=== PATIENT | male | born 1960 | race Caucasian/White ===

== ENCOUNTER 2017-09-23 19:45 | Emergency (ER) | payer BC ==
[2017-09-23] MEDS ORDERED: oxyCODONE/Acetamin 5/325 MG* TAB PO ONE (21:46)
[2017-09-23] MEDS ORDERED: Orphenadrine Citrate IV* 30 MG/ML 2 ML VIAL IM ONE (21:48)
[2017-09-23 22:08] LABS: ABS Basophils 0.1 10^3/ul (0-0.2); ABS Eosinophils 0.3 10^3/ul (0-0.6); ABS Lymphocytes 2.1 10^3/ul (1.0-4.8); ABS Monocytes 0.7 10^3/ul (0-0.8); ABS Neutrophils 3.2 10^3/ul (1.5-7.7); ABS Nucleated RBC 0 10^3/ul; Eosinophil % 4.7 % (0-6); Hematocrit 43 % (42-52); Hemoglobin 14.8 g/dl (14.0-18.0); Lymphocyte % 33.6 % (25-47); Mean Corpuscular HGB Conc 35 g/dl (31-36); Mean Corpuscular Hemoglobin 30 pg (27-31); Mean Corpuscular Volume 86 fL (80-94); Mean Platelet Volume 9 um3 (7.4-10.4); Nucleated Red Blood Cells % 0.2; Platelet Count 245 10^3/ul (150-450); Red Blood Count 5.03 10^6/ul (4.0-5.4); Red Cell Distribution Width 13 % (10.5-15); White Blood Count 6.4 10^3/ul (3.5-10.8)
[2017-09-23 22:16] LABS: INR 0.91 (0.77-1.02)
[2017-09-23 22:20] LABS: EGFR Non-African American 71.5 (>60)
--- NOTE | 2017-09-23 23:52 | ED ---
Venancio Raphael Angela, scribed for Favian Elliott on 09/23/17 at 2144 . Upper Extremity Pain - HPI Summary HPI Summary: This pt is a 57 y/o male presenting to [facility] c/o right shoulder pain radiating down to his right upper arm pain since 09/03/17. Pt denies any injury or trauma. He states he can only think of pulling on a snowblower to start it a few weeks ago prior to onset of pain. He reports his right upper arm also feels numb. Pt describes his pain as a stabbing pain on his right shoulder blade. He rates his pain 8 to 10 out of 10 in severity. Denies rash, fever. Pt states he went to a chiropractor and was diagnosed with a tightened muscle. Pt also went to Urgent Care and was given Flexeril as a muscle relaxant. He followed up with orthopedics and had XR done, which resulted negative. Pt was told to continue physical therapy. NKDA. - History of Current Complaint Chief Complaint: EDGeneral Stated Complaint: NUMBNESS RT SIDE Time Seen by Provider: 09/23/17 21:23 Hx Obtained From: Patient Mechanism Of Injury: Other - none per pt Onset/Duration: Started Weeks Ago, Atraumatic, Still Present Timing: Lasting Weeks Severity Currently: Severe Pain Location: Arm - right, Other: - right shoulder blade Character: Sharp Aggravating Factor(s): Nothing Alleviating Factor(s): Nothing Associated Signs & Symptoms: Positive: Numbness/Tingling - numbness on right shoulder blade and upper arm - Allergies/Home Medications Allergies/Adverse Reactions: Allergies Allergy/AdvReac Type Severity Reaction Status Date / Time No Known Allergies Allergy Verified 09/23/17 21:24 PMH/Surg Hx/FS Hx/Imm Hx Endocrine/Hematology History: Denies: Hx Anticoagulant Therapy, Hx Diabetes Cardiovascular History: Denies: Hx Congestive Heart Failure, Hx Hypertension History: Denies: Hx Renal Disease - Surgical History Surgery Procedure, Year, and Place: rt ankle - Immunization History Date of Tetanus Vaccine: utd Date of Influenza Vaccine: none Infectious Disease History: No Infectious Disease History: Denies: Traveled Outside the [place] in Last 30 Days - Family History Family History: No FHx of renal disease. - Social History Alcohol Use: Rare Substance Use Type: Reports: None Smoking Status (MU): Never Smoked Tobacco Review of Systems Negative: Fever, Chills Musculoskeletal: Other - right shoulder blade pain, right right upper arm pain Negative: Rash Positive: Numbness - right shoulder blade All Other Systems Reviewed And Are Negative: Yes Physical Exam - Summary Physical Exam Summary: Appearance: Well appearing, no pain distress Skin: warm, dry, reflects adequate perfusion Head/face: normal Eyes: EOMI, CHRISTIAN ENT: normal Neck: supple, nontender Respiratory: CTA, breath sounds present Cardiovascular: RRR, pulses symmetrical Abdomen: nontender, soft Bowel: present Musculoskeletal: tenderness over the interscapular region on the right side. Tenderness of the right arm on the medial aspect. No neurovascular deficits on right arm. Neuro: normal, sensory motor intact, A&Ox3 Triage Information Reviewed: Yes Vital Signs On Initial Exam: Initial Vitals Temp Pulse Resp BP Pulse Ox 97.7 F 75 18 153/91 98 09/23/17 19:54 09/23/17 19:54 09/23/17 19:54 09/23/17 19:54 09/23/17 19:54 Vital Signs Reviewed: Yes - Frederic Coma Scale Best Eye Response: 4 - Spontaneous Best Motor Response: 6 - Obeys Commands Best Verbal Response: 5 - Oriented Coma Scale Total: 15 Diagnostics - Vital Signs Vital Signs Temp Pulse Resp BP Pulse Ox 09/23/17 19:54 97.7 F 75 18 153/91 98 - Laboratory Lab Results: Lab Results 09/23/17 09/23/17 09/23/17 Range/Units 21:50 21:50 21:50 WBC 6.4 (3.5-10.8) 10^3/ul RBC 5.03 (4.0-5.4) 10^6/ul Hgb 14.8 (14.0-18.0) g/dl Hct 43 (42-52) % MCV 86 (80-94) fL MCH 30 (27-31) pg MCHC 35 (31-36) g/dl RDW 13 (10.5-15) % Plt Count 245 (150-450) 10^3/ul MPV 9 (7.4-10.4) um3 Neut % (Auto) 50.4 (38-83) % Lymph % (Auto) 33.6 (25-47) % [place] % (Auto) 10.4 H (0-7) % Eos % (Auto) 4.7 (0-6) % Baso % (Auto) 0.9 (0-2) % Absolute Neuts (auto) 3.2 (1.5-7.7) 10^3/ul Absolute Lymphs (auto) 2.1 (1.0-4.8) 10^3/ul Absolute Monos (auto) 0.7 (0-0.8) 10^3/ul Absolute Eos (auto) 0.3 (0-0.6) 10^3/ul Absolute Basos (auto) 0.1 (0-0.2) 10^3/ul Absolute Nucleated RBC 0 10^3/ul Nucleated RBC % 0.2 INR (Anticoag Therapy) 0.91 (0.77-1.02) APTT 33.6 (26.0-36.3) seconds Sodium 136 (133-145) mmol/L Potassium 3.8 (3.5-5.0) mmol/L Chloride 104 (101-111) mmol/L Carbon Dioxide 25 (22-32) mmol/L Anion Gap 7 (2-11) mmol/L BUN 18 (6-24) mg/dL Creatinine 1.07 (0.67-1.17) mg/dL Est GFR ( Amer) 91.9 (>60) Est GFR (Non-Af Amer) 71.5 (>60) BUN/Creatinine Ratio 16.8 (8-20) Glucose 94 (70-100) mg/dL Calcium 9.2 (8.6-10.3) mg/dL Total Bilirubin 0.50 (0.2-1.0) mg/dL AST 18 (13-39) U/L ALT 26 (7-52) U/L Alkaline Phosphatase 38 (34-104) U/L Troponin I 0.00 (<0.04) ng/mL Total Protein 6.8 (6.4-8.9) g/dL Albumin 4.1 (3.2-5.2) g/dL Globulin 2.7 (2-4) g/dL Albumin/Globulin Ratio 1.5 (1-3) Lipase 19 (11.0-82.0) U/L Result Diagrams: 09/23/17 21:50 09/23/17 21:50 Lab Statement: Any lab studies that have been ordered have been reviewed, and results considered in the medical decision making process. - Radiology Chest XR Xray Interpretation: No Acute Changes - chest XR is negative Radiology Interpretation Completed By: ED Physician - CT Head CT CT Interpretation: No Acute Changes - IMPRESSION There is no CT evidence of acute cortical territorial infarction, bleed, mass lesion, mass effect, hydrocephalus, or abnormal extraaxial collection. No acute sinusitis or mastoiditis is identified. Mild left ethmoid chronic sinus disease. No acute skull fracture or calvarial lesion is noted. Dr. Elliott has reviewed this radiology report. CT Interpretation Completed By: Radiologist Neck CT CT Interpretation: Positive (See Comments) - IMPRESSION: Straightening of the curvature. No acute fracture, subluxation or abnormal prevertebral soft tissue swelling noted. Facet joints intact and normally aligned. Spinous processes intact. Underlying degenerative disc disease at C5-6, C6-7, and C7-T1 with disc space narrowing and disc bulging combination. Bilateral C5-6 neuroforaminal narrowing present. There is a 1.6 cm low-density lesion in the right thyroid lobe. Consider a follow-up thyroid ultrasounds for further evaluation. No neck soft tissue hemorrhage or edema seen. No pneumothorax in the lung apices. Dr. Elliott has reviewed this radiology report. CT Interpretation Completed By: Radiologist - EKG 22:43 Cardiac Rate: NL EKG Rhythm: Sinus Rhythm - at 64 bpm EKG Interpretation: No acute changes. Re-Evaluation - Re-Evaluation First Eval Re-Evaluation Time: 23:15 Comment: I reviewed the CT and lab results with the pt. He reports he feels better. Course/Dx - Course Course Of Treatment: Pt is a 57 y/o male who presents with atraumatic right shoulder pain radiating down to his right upper arm pain since 09/03/17. He additionally notes associated numbness with pain. Bloodwork, chest XR, head CT, and cervical spine CT were obtained. All images are negative. Pt reports feeling better after medications. Pt will be discharged to home. He will be given a prescription for Robaxin and Percocet. - Diagnoses Differential Diagnosis/HQI/PQRI: Positive: Arthritis, Strain, Sprain, Other - radiculitis Provider Diagnoses: Cervical radiculopathy Discharge - Discharge Plan Condition: Stable Disposition: HOME Prescriptions: Methocarbamol TAB* [Robaxin 500 MG TAB*] 750 mg PO TID PRN #21 tab MDD 3 PRN Reason: Pain Oxycodone HCl/Acetaminophen [Percocet] 1 tab PO TID #21 tab MDD 3 Patient Education Materials: Cervical Radiculopathy (ED) Forms: *Work Release Referrals: Suri Izquierdo MD [Primary Care Provider] - 3 Days Additional Instructions: Please follow up with your primary care provider in 3 days. RETURN TO THE ED FOR ANY WORSENING SYMPTOMS. The documentation as recorded by the Venancio wood Angela accurately reflects the service I personally performed and the decisions made by Earl barrientos Emmanuel.
[2017-09-24 00:19] VITALS: BP 149/83
--- NOTE | 2017-09-24 07:32 | RAD ---
INDICATION: Right arm numbness. COMPARISON: There are no prior studies available for comparison. TECHNIQUE: Contiguous axial sections of the brain were obtained from the skull base to the vertex without contrast. FINDINGS: The ventricles, cisterns and sulci are within normal limits. No significant focal abnormality or mass effect is seen. There is no evidence for hemorrhage. There is mildly mucosal thickening within the ethmoid air cells on the left side. The visualized portion of the paranasal sinuses and mastoid air cells otherwise appear clear. IMPRESSION: NO EVIDENCE FOR GROSS ACUTE INFARCT, MASS EFFECT OR HEMORRHAGE.
--- NOTE | 2017-09-24 07:39 | RAD ---
INDICATION: Numbness in the right arm. COMPARISON: There are no prior studies available for comparison. TECHNIQUE: Contiguous axial sections were obtained from the skull base through the T1 vertebra. Images were reconstructed in the sagittal and coronal planes. FINDINGS: There is straightening of the cervical spine with loss of the normal cervical lordosis. No prevertebral soft tissue swelling or fracture is seen. At the C3-C4 level there is a mild broad-based disc bulge. No significant spinal canal narrowing is present. There is mild bilateral neural foraminal narrowing. At the C4-C5 level there is mild uncinate process spurring associated with a mild broad-based disc bulge. No significant spinal canal narrowing is present. There is mild bilateral neural foraminal narrowing. At the C5-C6 level there is a mild broad-based disc bulge associated with posterior uncinate process spurring. There appears be mild spinal canal narrowing and mild to moderate bilateral neural foraminal narrowing. At the C6-C7 level there is mild posterior uncinate process spurring. No significant spinal canal narrowing is noted. There is mild bilateral neural foraminal narrowing. The lung apices appear clear. There is a 1.4 x 1.0 cm nodule in the right thyroid lobe. IMPRESSION: 1. STRAIGHTENING OF THE CERVICAL SPINE, NO EVIDENCE FOR FRACTURE OR SUBLUXATION. 2. MILD TO MODERATE CERVICAL SPONDYLOSIS. 3. 1.4 CM THYROID NODULE. RECOMMEND A FOLLOW-UP THYROID ULTRASOUND FOR FURTHER EVALUATION.
--- NOTE | 2017-09-24 07:49 | RAD ---
INDICATION: Upper back pain COMPARISON: Most recent comparison chest x-rays dated August 16, 2014 at which time the patient had right upper lobe pneumonia TECHNIQUE: PA and lateral views of the chest were obtained. FINDINGS: The heart and mediastinum are normal in size and contour. The lungs are grossly clear. There is no evidence of large pleural effusion. Visualized bones are normal for the patient's age. There is no radiographic evidence of free air beneath the diaphragm IMPRESSION: No radiographic evidence of acute cardiopulmonary disease.
== END 2017-09-24 00:17 | disposition home or self-care (01) ==
LOC: ED 19:45
DX: M47.22 Other spondylosis with radiculopathy, cervical region (principal); E04.1 Nontoxic single thyroid nodule; R20.0 Anesthesia of skin
CPT/HCPCS: 36415; 70450; 71046; 72125; 80053; 83690; 84484; 85025; 85610; 85730; 93005; 96372; 99282; A9270-GY; J2360

== ENCOUNTER 2017-10-06 06:42 | Emergency (ER) | payer BC ==
[2017-10-06] MEDS ORDERED: Metoprolol Tartrate TAB* 25 MG PO ONE (07:21)
[2017-10-06] MEDS ORDERED: Nitroglycerin TAB 0.4 MG* 0.4 MG TAB SL ONE (07:21)
[2017-10-06] MEDS ORDERED: Aspirin EC TAB* 325 MG PO ONE (07:21)
[2017-10-06 07:49] LABS: ABS Basophils 0 10^3/ul (0-0.2); ABS Eosinophils 0.2 10^3/ul (0-0.6); ABS Lymphocytes 1.5 10^3/ul (1.0-4.8); ABS Monocytes 0.6 10^3/ul (0-0.8); ABS Neutrophils 3.9 10^3/ul (1.5-7.7); ABS Nucleated RBC 0 10^3/ul; Eosinophil % 3.2 % (0-6); Hematocrit 45 % (42-52); Hemoglobin 15.5 g/dl (14.0-18.0); Lymphocyte % 23.9 % (25-47); Mean Corpuscular HGB Conc 35 g/dl (31-36); Mean Corpuscular Hemoglobin 30 pg (27-31); Mean Corpuscular Volume 86 fL (80-94); Mean Platelet Volume 9 um3 (7.4-10.4); Nucleated Red Blood Cells % 0; Platelet Count 264 10^3/ul (150-450); Red Blood Count 5.21 10^6/ul (4.0-5.4); Red Cell Distribution Width 13 % (10.5-15); White Blood Count 6.2 10^3/ul (3.5-10.8)
--- NOTE | 2017-10-06 07:56 | RAD ---
HISTORY: Chest pain COMPARISONS: September 23, 2017 VIEWS: 1: frontal portable view of the chest at 7:25 AM FINDINGS: LINES AND TUBES: None. CARDIOMEDIASTINAL SILHOUETTE: The cardiomediastinal silhouette is normal for portable technique. PLEURA: The costophrenic angles are sharp. No pleural abnormalities are noted. LUNG PARENCHYMA: The lungs are clear. ABDOMEN: The upper abdomen is clear. There is no subphrenic gas. BONES AND SOFT TISSUES: No bone or soft tissue abnormalities are noted. IMPRESSION: NO ACTIVE CARDIOPULMONARY DISEASE.
[2017-10-06 07:58] LABS: INR 0.92 (0.77-1.02)
--- OUTSIDE RECORDS SUMMARY | 2017-10-06 08:53 | XMS REPORT ---
:1960 External Reference #:[id number] Author Organization [employer] Address [address] [address] Phone [phone] Care Team Providers Name Role Phone Dhiraj Vaca MD Primary Care Physician Unavailable Payers Type Date Identification Numbers Payment Provider Subscriber Commercial Policy Number: [id number] [facility] Amber Posada PayID: [id number] [address] [place] [address] Problems Description No Information Social History Type Date Description Comments Smoking Patient has never smoked Allergies, Adverse Reactions, Alerts Date Description Reaction Status Severity Comments 09/27/2017 NKDA active Medications Medication Date Status Form Strength Qnty SIG Indications Ordering Provider Prednisone 09/27/19 Active Tablets 5mg 28tabs taper dose M54.12 Mary Jo 18 start with 7 [place], tabs (35mg) [employer] and decrease by one tab each in the morning, 6,5,4,3,2,1 Robaxin 00/00/00 Active Tablets 500mg three times Unknown 00 daily as needed. RX'D By ER Percocet 00/00 Active Tablets 5-325mg 1 tabs by Unknown 00 mouth every 4-6 hours as needed pain. RX'D By ER Vitamin C 0000 Active Tablets 1000mg 1 by mouth Unknown 00 every day Immunizations CPT Code Status Date Vaccine Lot # [id number] Given 09/27/2017 Tdap - Tetanus/Diptheria/Acellular Pertussis [id number] Vital Signs Date Vital Result Comment 09/27/2017 Height 68 inches 5'8" Weight 175.00 lb Heart Rate 77 /min BP Systolic Sitting 142 mmHg BP Diastolic Sitting 96 mmHg Body Temperature 97.1 F O2 % BldC Oximetry 97 % BMI (Body Mass Index) 26.6 kg/m2 Results Test Date Test Result H/L Range Note Inr/Protime 09/23/2017 Inr 0.91 0.77-1.02 Laboratory test finding 09/23/2017 Partial Thrombo 33.6 seconds 26.0- 36.3 Time PTT CBC Auto Diff 09/23/2017 White Blood Count 6.4 10^3/uL 3.5-10.8 Red Blood Count 5.03 10^6/uL 4.0-5.4 Hemoglobin 14.8 g/dL 14.0-18.0 Hematocrit 43 % 42-52 Mean Corpuscular Volume 86 fL 80-94 Mean Corpuscular Hemoglobin 30 pg 27-31 Mean Corpuscular HGB Conc 35 g/dL 31-36 Red Cell Distribution Width 13 % 10.5-15 Platelet Count 245 10^3/uL 150-450 Mean Platelet Volume 9 um3 7.4-10.4 Abs Neutrophils 3.2 10^3/uL 1.5-7.7 Abs Lymphocytes 2.1 10^3/uL 1.0-4.8 Abs Monocytes 0.7 10^3/uL 0-0.8 Abs Eosinophils 0.3 10^3/uL 0-0.6 Abs Basophils 0.1 10^3/uL 0-0.2 Abs Nucleated RBC 0 10^3/uL Granulocyte % 50.4 % 38-83 Lymphocyte % 33.6 % 25-47 Monocyte % 10.4 % High 0-7 Eosinophil % 4.7 % 0-6 Basophil % 0.9 % 0-2 Nucleated Red Blood Cells % 0.2 Comp Metabolic Panel 09/23/2017 Sodium 136 mmol/L 133-145 Potassium 3.8 mmol/L 3.5-5.0 Chloride 104 mmol/L 101-111 Co2 Carbon Dioxide 25 mmol/L 22-32 Anion Gap 7 mmol/L 2-11 Glucose 94 mg/dL 70-100 Blood Urea Nitrogen 18 mg/dL 6-24 Creatinine 1.07 mg/dL 0.67-1.17 BUN/Creatinine Ratio 16.8 8-20 Calcium 9.2 mg/dL 8.6-10.3 Total Protein 6.8 g/dL 6.4-8.9 Albumin 4.1 g/dL 3.2-5.2 Globulin 2.7 g/dL 2-4 Albumin/Globulin Ratio 1.5 1-3 Total Bilirubin 0.50 mg/dL 0.2-1.0 Alkaline Phosphatase 38 U/L 34-104 Alt 26 U/L 7-52 Ast 18 U/L 13-39 Egfr Non- 71.5 >60 Egfr 91.9 >60 1 Laboratory test finding 09/23/2017 Lipase 19 U/L 11.0-82.0 Troponin-I (TnI) 0.00 ng/mL <0.04 1 Because ethnic data is not always readily available, this report includes an eGFR for both -Americans and non- Americans. The National Kidney Disease Education Program (NKDEP) does not endorse the use of the MDRD equation for patients that are not between the ages of 18 and 70, are , have extremes of body size, muscle mass, or nutritional status, or are non- or non-. According to the National Kidney Foundation, irrespective of diagnosis, the stage of the disease is based on the level of kidney function: Stage Description GFR(mL/min/1.73 m(2)) 1 Kidney damage with normal or decreased GFR 90 2 Kidney damage with mild decrease in GFR 60-89 3 Moderate decrease in GFR 30-59 4 Severe decrease in GFR 15-29 5 Kidney failure <15 (or dialysis) Procedures Description No Information Plan of Care Future Appointment(s):10/18/2017 8:20 am - Mary Jo Farsnworth NP at [facility] Internal Medicine - [address]09/27/2017 - Mary Jo Farnsworth NPM54.12 Radiculopathy, cervical regionNew Medication:Prednisone 5 mgComments:I have ordered Prednisone taper take it in the morning with foodDo not take any Ibuprofen while on PrednisonePay attention to your positioning.Continue the Robaxin as neededPercocet at nightDrink plenty of fluids and take stool softener for any constipationFollow up:F/U 2 sjiisN40.0 Neoplasm of uncertain behavior of thyroid glandComments:I have ordered an Ultrasound of your Thyroid to follow up on a 1.6 cm lesion.I will contact you withthe results.[id number] Encounter for immunization
--- OUTSIDE RECORDS SUMMARY | 2017-10-06 08:53 | XMS REPORT | Continuity of Care Document ---
:1960 Author Organization [facility] Care Team Providers Name Role Phone OPHELIA FIELDS Admitting Physician OPHELIA FIELDS Attending Physician SMITH PERRY Primary Care Physician Hospital Admission Diagnosis Code Admission Diagnosis Date [id number] Pain in thoracic spine Social History Element Description Code Description Smoking Status Code Start Date End Date System Smoking Status [id number] Never smoker SNOMED-CT Problems Code Code System Problem Name Start Date End Date Status [id number] SNOMED-CT Repair of ankle Unknown Active Medications RxNorm Medication Dose Route Instructions Indications Start End Status Date Date Cyclobenzaprine 10 oral orally 3 times Active Oral milligram per day (10 days) Allergies No Known Allergies Results No data in the system Vital Signs Vitals Value Date Body Temperature 97.9 F 09/14/2017 Pulse Rate 74 (beats)/min 09/14/2017 Respiratory Rate 16 (breaths)/min 09/14/2017 O2% BldC Oximetry 99 % 09/14/2017 BP Systolic 155 mmHg 09/14/2017 BP Diastolic 95 mmHg 09/14/2017 Height 69 in 09/14/2017 Weight Measured 169.75 lbs 09/14/2017 BSA (Body Surface Area) 1.85877 m2 09/14/2017 BMI (Body Mass Index) 25.1 kg/m2 09/14/2017 Advance Directives No Data in the System Family History No Data Reported Plan of Care No data in the system Procedures No data in the system Encounters Date Code Diagnosis Status (ICD10) - R71224G STRAIN MUSC FASC TENDON LW BACK INT Active Immunizations No data in the system Functional Status No data in the system Hospital Discharge Instructions No data in the system
[2017-10-06 09:08] LABS: EGFR Non-African American 66.4 (>60)
[2017-10-06 10:31] LABS: Urine Appearance Clear; Urine Blood Negative (Negative); Urine Color Yellow; Urine Ketones Negative (Negative); Urine Protein Negative (Negative); Urine Specific Gravity 1.015 (1.010-1.030); Urine Urobilinogen Negative (Negative)
[2017-10-06 11:20] VITALS: BP 121/83
--- NOTE | 2017-10-07 08:15 | ED ---
Venancio Raphael Angela, scribed for Wilfred Pearson MD on 10/06/17 at 0726 . HPI Chest Pain - HPI Summary HPI Summary: This pt is a 57 y/o male presenting to [facility] c/o chest pain today since 01:00. Pt reports his pain is across his chest, more left than right. He states his chest pain radiates to his left arm, and has left arm pain and left arm tingling. He describes his chest pain as heaviness. 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 He was instructed to come to the ED. He currently notes his chest is still heavy, and rates it 5 out of 10 in severity. Denies LE swelling, nausea , vomiting. Denies tobacco, alcohol, drug use. Denies PMHx of HTN. - History of Current Complaint Chief Complaint: EDChestPainROMI Time Seen by Provider: 10/06/17 07:11 Hx Obtained From: Patient Onset/Duration: Started Hours Ago, Still Present Timing: Constant, Lasting Hours Current Severity: Moderate Pain Intensity: 5 Pain Scale Used: 0-10 Numeric Chest Pain Location: Diffuse Chest Pain Radiates: Yes Chest Pain Radiates To:: Arm - left Character: Heaviness Aggravating Factor(s): Nothing Alleviating Factor(s): Nothing Associated Signs and Symptoms: Positive: Chest Pain, Tingling - in left arm. Negative: Fever, Nausea, Vomiting - Allergy/Home Medications Allergies/Adverse Reactions: Allergies Allergy/AdvReac Type Severity Reaction Status Date / Time No Known Allergies Allergy Verified 10/06/17 06:54 Home Medications: Home Medications Ascorbic Acid TAB* [Vitamin C TAB*] 500 mg PO DAILY 10/06/17 [History Confirmed 10/06/17] PMH/Surg Hx/FS Hx/Imm Hx Endocrine/Hematology History: Denies: Hx Anticoagulant Therapy, Hx Diabetes Cardiovascular History: Denies: Hx Congestive Heart Failure, Hx Hypertension History: Denies: Hx Renal Disease - Surgical History Surgery Procedure, Year, and Place: rt ankle - Immunization History Date of Tetanus Vaccine: utd Date of Influenza Vaccine: none Infectious Disease History: No Infectious Disease History: Denies: Traveled Outside the [place] in Last 30 Days - Family History Known Family History: Positive: Hypertension - Brother Family History: No FHx of renal disease. No FHx of [place] at approx age of 56. - Social History Alcohol Use: Rare Substance Use Type: Reports: None Smoking Status (MU): Never Smoked Tobacco Review of Systems Negative: Fever, Chills Eyes: Negative Positive: Chest Pain Gastrointestinal: Negative Genitourinary: Negative Musculoskeletal: Negative Positive: Paresthesia - in left arm All Other Systems Reviewed And Are Negative: Yes Physical Exam - Summary Physical Exam Summary: VITAL SIGNS: Reviewed. GENERAL: Patient is a well-developed and nourished male who is lying comfortable in the stretcher. Patient is not in any acute respiratory distress. HEAD AND FACE: No signs of trauma. No ecchymosis, hematomas or skull depressions. No sinus tenderness. EYES: PERRLA, EOMI x 2, No injected conjunctiva, no nystagmus. EARS: Hearing grossly intact. Ear canals and tympanic membranes are within normal limits. MOUTH: Oropharynx within normal limits. NECK: Supple, trachea is midline, no adenopathy, no JVD, no carotid bruit, no c- spine tenderness, neck with full ROM. CHEST: Symmetric, no tenderness at palpation LUNGS: Clear to auscultation bilaterally. No wheezing or crackles. CVS: Regular rate and rhythm, S1 and S2 present, no murmurs or gallops appreciated. ABDOMEN: Soft, non-tender. No signs of distention. No rebound no guarding, and no masses palpated. Bowel sounds are normal. EXTREMITIES: FROM in all major joints, no edema, no cyanosis or clubbing. NEURO: Alert and oriented x 3. No acute neurological deficits. Speech is normal and follows commands. SKIN: Dry and warm Triage Information Reviewed: Yes Vital Signs On Initial Exam: Initial Vitals Temp Pulse Resp BP Pulse Ox 98.2 F 72 16 164/96 100 10/06/17 06:45 10/06/17 06:45 10/06/17 06:45 10/06/17 06:45 10/06/17 06:45 Vital Signs Reviewed: Yes Diagnostics - Vital Signs Vital Signs Temp Pulse Resp BP Pulse Ox 10/06/17 06:45 98.2 F 72 16 164/96 100 - Laboratory Result Diagrams: 10/06/17 07:29 10/06/17 07:29 Lab Statement: Any lab studies that have been ordered have been reviewed, and results considered in the medical decision making process. - Radiology Chest XR Xray Interpretation: No Acute Changes - IMPRESSION: No active cardiopulmonary disease. Dr. Pearson has reviewed this radiology report. Radiology Interpretation Completed By: Radiologist - EKG 06:58 Cardiac Rate: NL EKG Rhythm: Sinus Rhythm - at 71 bpm EKG Interpretation: No ST elevation. Normal axis. Re-Evaluation - Re-Evaluation First Eval Re-Evaluation Time: 11:03 Comment: I reviewed the lab and chest XR with the pt. Chest Pain Course/Dx - Course Assessment/Plan: This pt is a 57 y/o male presenting to [facility] c/o chest pain today since 01:00. Pt reports his pain is across his chest, more left than right. He states his chest pain radiates to his left arm, and has left arm pain and left arm tingling. He describes his chest pain as heaviness. 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 He was instructed to come to the ED. He currently notes his chest is still heavy, and rates it 5 out of 10 in severity. Denies LE swelling, nausea, vomiting. Test results without any significant abnormalities. Two troponins, 4 hours apart, are both 0.00. Urinalysis is negative for UTI. EKG shows no ST elevations and chest XR is negative. Since the pt is asymptomatic and hemodynamically stable, pt will be discharged to home with follow up from PCP. He is instructed to return to the ED for any worsening or new symptoms. Pt is hemodynamically stable, alert and oriented x3. - Diagnoses Provider Diagnoses: Chest pain Discharge - Discharge Plan Condition: Stable Disposition: HOME Patient Education Materials: Chest Pain (ED) Forms: *Work Release Referrals: Suri Izquierdo MD [Primary Care Provider] - 3 Days Additional Instructions: Please follow up with your primary care provider. RETURN TO THE ED FOR ANY WORSENING SYMPTOMS. The documentation as recorded by the Venancio wood Angela accurately reflects the service I personally performed and the decisions made by me, Wilfred Pearson MD.
== END 2017-10-06 11:20 | disposition home or self-care (01) ==
LOC: ED 06:42
DX: R07.9 Chest pain, unspecified (principal)
CPT/HCPCS: 36415; 71045; 80053; 81003; 82550; 82553; 83735; 83880; 84443; 84484; 85025; 85610; 85730; 93005; 99283; A9270-GY

== ENCOUNTER 2018-09-02 15:58 | Emergency (ER) | payer BC ==
[2018-09-02 16:41] VITALS: BP 135/74
--- NOTE | 2018-09-02 18:21 | UC ---
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 -no ST or ear ache. Denies history of asthma, COPD or smoking. No wheezing. No sinus pain or pressure. No fevers. No body aches. Viscous complaint is coughing at night. - History of Current Complaint Chief Complaint: UCGeneralIllness Stated Complaint: SORE THROAT,COUGH Time Seen by Provider: 09/02/18 18:20 Pain Intensity: 0 - Allergies/Home Medications Allergies/Adverse Reactions: Allergies Allergy/AdvReac Type Severity Reaction Status Date / Time No Known Allergies Allergy Verified 09/02/18 16:41 Home Medications: Home Medications Lisinopril TAB* [Prinivil TAB 10 MG*] 20 mg PO DAILY 09/02/18 [History Confirmed 09/02/18] PMH/Surg Hx/FS Hx/Imm Hx Previously Healthy: Yes Cardiovascular History: Hypertension Other History Of: Negative For: Anticoagulant Therapy - Surgical History Surgical History: Yes Surgery Procedure, Year, and Place: rt ankle - Family History Known Family History: Positive: Hypertension - Brother Family History: No FHx of renal disease. No FHx of [place] at approx age of 56. - Social History Alcohol Use: Rare Substance Use Type: None Smoking Status (MU): Never Smoked Tobacco Review of Systems All Other Systems Reviewed And Are Negative: Yes Constitutional: Positive: Fatigue Skin: Positive: Negative Eyes: Positive: Negative ENT: Positive: Negative, Nasal Discharge Respiratory: Positive: Cough Cardiovascular: Positive: Negative Gastrointestinal: Positive: Negative Genitourinary: Positive: Negative Motor: Positive: Negative Neurovascular: Positive: Negative Musculoskeletal: Positive: Negative Neurological: Positive: Negative Psychological: Positive: Negative Is Patient Immunocompromised?: No Physical Exam Triage Information Reviewed: Yes Appearance: Well-Appearing, No Pain Distress, Well-Nourished Vital Signs: Initial Vital Signs Temp 97.8 F 09/02/18 16:37 Pulse 70 09/02/18 16:37 Resp 16 09/02/18 16:37 BP 135/74 09/02/18 16:37 Pulse Ox 99 09/02/18 16:37 Vital Signs Reviewed: Yes Eye Exam: Normal ENT: Positive: Pharynx normal - Positive postnasal drip, Nasal congestion, Nasal drainage, TMs normal, Uvula midline. Negative: TM bulging, TM dull, TM red, Tonsillar swelling, Tonsillar exudate, Sinus tenderness Neck exam: Normal Neck: Positive: Supple, Nontender, No Lymphadenopathy Respiratory Exam: Normal Respiratory: Positive: Lungs clear, Normal breath sounds, No respiratory distress, Decreased breath sounds. Negative: Crackles, Rhonchi, Stridor, Wheezing Cardiovascular Exam: Normal Cardiovascular: Positive: RRR Abdominal Exam: Normal Musculoskeletal Exam: Normal Neurological Exam: Normal Psychological Exam: Normal Skin Exam: Normal UC Diagnostic Evaluation - Laboratory O2 Sat by Pulse Oximetry: 99 Respiratory Course/Dx - Course Course Of Treatment: -No evidence for any bacterial infection. No strep, no sinusitis, no pneumonia. - Differential Dx/Diagnosis Differential Diagnosis/HQI/PQRI: Asthma, Bronchitis, Influenza, Laryngitis, Lower Resp Infection, Sinusitis Provider Diagnosis: Bronchitis Discharge - Sign-Out/Discharge Documenting (check all that apply): Patient Departure All imaging exams completed and their final reports reviewed: No Studies - Discharge Plan Condition: Stable Disposition: HOME Prescriptions: Albuterol HFA INHALER* [Ventolin HFA Inhaler*] 2 puff INH Q4H PRN 14 Days #1 mdi PRN Reason: Cough Benzonatate CAP* [Tessalon 100 MG CAP*] 100 mg PO TID PRN #30 cap PRN Reason: Cough Patient Education Materials: Acute Bronchitis (ED) Referrals: Suri Izquierdo MD [Primary Care Provider] - 7 Days Additional Instructions: -We discussed that there is no evidence for any bacterial infection at this time. The albuterol will help with your cough and the airway restriction. Tessalon Perles can also help with cough. Make sure to increase her fluids and get plenty of rest. - Billing Disposition and Condition Condition: STABLE Disposition: Home
== END 2018-09-02 18:41 | disposition home or self-care (01) ==
LOC: UCCORT 15:58
DX: J40 Bronchitis, not specified as acute or chronic (principal); J02.9 Acute pharyngitis, unspecified; R51 Headache; I10 Essential (primary) hypertension; R09.82 Postnasal drip; R09.81 Nasal congestion; R09.89 Other specified symptoms and signs involving the circulatory and respiratory systems; Z79.899 Other long term (current) drug therapy
CPT/HCPCS: 99212; G0463